=== PATIENT | male | born 1970 | race Caucasian/White ===

== ENCOUNTER 2018-05-29 05:33 | Day surgery (SDC) | payer BC ==
[~2018-05-29] VITALS: Ht 185.4 cm; Wt 69.5 kg
[~2018-05-29 05:33] MED LIST: TYLENOL 500MG500 MG PO
[2018-05-29] MEDS ORDERED: PRILOTC PO (06:01)
[2018-05-29] MEDS ORDERED: CHLOR-TABS4 MG PO (06:03)
[2018-05-29 06:28] VITALS: BP 107/70; PULSE 63; TEMP 97.7
[2018-05-29 09:45] VITALS: BP 116/68; PULSE 80; TEMP 97.1
[2018-05-29 10:00] VITALS: BP 105/77; PULSE 80
[2018-05-29] MEDS ORDERED: ROXICODONE 55 MG/TAB PO (10:14)
[2018-05-29 10:15] VITALS: BP 112/75; PULSE 80
[2018-05-29 10:30] VITALS: BP 112/75; PULSE 66
== END 2018-05-29 11:00 | disposition home or self-care (01) ==
LOC: SDCO 05:33
DX: K40.90 Unilateral inguinal hernia, without obstruction or gangrene, not specified as recurrent (principal); K21.9 Gastro-esophageal reflux disease without esophagitis
CPT/HCPCS: C1781; J0690; J1100; J1885; J2405; J2704; J2710; J2765; J3010; J7120

== ENCOUNTER 2023-11-14 13:30 | Emergency (ER) | payer BC ==
[~2023-11-14] VITALS: Ht 182.9 cm; Wt 77.3 kg
[~2023-11-14 13:30] MED LIST changes: +CHLOR-TABS4 MG PO; +PRILOTC PO; +ROXICODONE 55 MG/TAB PO
[2023-11-14 13:33] VITALS: TEMP 97.6
[2023-11-14] MEDS ORDERED: ESTRACE2 MG PO (13:42)
[2023-11-14] MEDS ORDERED: PROSCAR 5MG5 MG PO (13:42)
[2023-11-14] MEDS ORDERED: ALDACTONE 100M100 MG PO (13:42)
[2023-11-14] MEDS ORDERED: ULTRAM 50MG TAB50 MG PO (13:44)
[2023-11-14] MEDS ORDERED: NORCO 325 MG-51 TAB PO (14:44)
[2023-11-14] MEDS ORDERED: MEDROL 4MG DOSPA4 MG PO (14:44)
[2023-11-14] MEDS ORDERED: FLEXERIL 1010 MG/TAB PO (14:44)
[2023-11-14 15:15] VITALS: BP 114/67; PULSE 88
== END 2023-11-14 15:00 | disposition home or self-care (01) ==
LOC: COL.ER 13:30
DX: M54.17 Radiculopathy, lumbosacral region (principal)
CPT/HCPCS: J1885